=== PATIENT | female | born 1980 | race Caucasian/White ===

== ENCOUNTER 2022-05-23 20:39 | Emergency (ER) | payer OTHER ==
--- OUTSIDE RECORDS SUMMARY | 2022-05-23 20:42 | XMS REPORT | Continuity of Care Document ---
:1980 Author Organization [facility] t Address [address] [place] [address] Care Team Providers Name Role Phone JOSE GARCIA Primary Care Physician Unavailable KENNY PITTMAN Attending Clinician Unavailable Kenny Pittman MD Attending Clinician [phone] Jose Garcia Attending Clinician Unavailable Cassie Delacruz Attending Clinician Unavailable Deven Haddad Attending Clinician Unavailable Elle Pineda Attending Clinician Unavailable Cynthia Pedroza Attending Clinician Unavailable Grisel Candelario Admitting Clinician Unavailable Jose Garcia Admitting Clinician Unavailable Cassie Delacruz Admitting Clinician Unavailable KNOW, DOES_NOT Admitting Clinician Unavailable Payers Payer Name Policy Type Policy Number Effective Date Expiration Date Javan gamez [facility] POS [id number] 2021 00:00:00 SELECT CHOICE Problems This patient has no known problems. Allergies, Adverse Reactions, Alerts Allergy Allergy Status Severity Reaction(s) Onset Inactive Treating Comm ents Source Name Type Date Date Clinician No Known DA [facility] U 2019[facility] No Known DA Active U 2019-05 [facility] No Known DA Active U [facility] No Known DA Active U [facility] 02-19 [facility] s 00:00: d 00 [facility] NO KNOWN Allergy Active [facility] Social History Social Habit Start Date Stop Date Quantity Comments Source Exposure to 2021-12-31 2022-01-[address] [facility] SARS-CoV-2 (event) 00:00:00 14:55:00 [facility] Cigarette 2022-01-10 2022-01-[address] [facility] pack-years 00:00:00 00:00:00 [facility] Tobacco use and 2022-01-10 2022-01-[address] [facility] exposure 00:00:00 00:00:00 [facility] Alcohol intake 2022-01-10 2022-01-10 Ex-drinker [facility] 00:00:00 00:00:00 (finding) [facility] Cigarettes smoked 2022-01-10 2022-01-[address] [facility] current (pack per 00:00:00 00:00:00 [facility] Center day) - Reported Sex Assigned At [address] [facility] 00:00:00 00:00:00 [facility] Smoking Status Start Date Stop Date Source Current every day smoker 2022-01-10 00:00:00 [facility] Medications Ordered Filled Start Stop Current Ordering Indication Dosage Frequency Signature Comments Components Source Medication Medication Date Date Medication? Clinician (SIG) Name Name acetaminoph Yes Take by [facility] 01-[facility] (TYLENOL 00:00: Medical #3) 300-30 00 Center mg per tablet naproxen 2021-0 Yes 500mg Q.5D Take [address] (NAPROSYN) 8-18 mg by [facility] 500 MG 00:00: mouth 2 Medical tablet 00 (two) Center times daily. acetaminoph 2021-0 Yes Take by [facility] en-codeine 8-18 [facility] (TYLENOL 00:00: Medical #3) 300-30 00 Center mg per tablet naproxen 2021-0 Yes 500mg Q.5D Take [address] (NAPROSYN) 8-18 mg by [facility] 500 MG 00:00: mouth 2 Medical tablet 00 (two) Center times daily. acyclovir 0 Yes 400mg QD Take [address] (ZOVIRAX) 8-17 mg by [facility] 400 MG 00:00: mouth Medical tablet 00 daily. [place] estradioL Yes Place [facility] (ESTRACE) 8-17 vaginally. Luke [facility] 0.01 % (0.1 00:00: Medica l mg/gram) 00 [place] vaginal cream acyclovir 0 Yes 400mg QD Take [address] (ZOVIRAX) 8-17 mg by [facility] 400 MG 00:00: mouth Medical tablet 00 daily. [place] estradioL [address] [facility] (ESTRACE) 8-17 vaginally. Luke [facility] 0.01 % (0.1 00:00: Medica l mg/gram) 00 [place] vaginal cream propranoloL 2021-0 Yes 20mg QD Take [address] (INDERAL) 8-17 by mouth [facility] 20 MG 00:00: daily. Medical tablet 00 Center propranoloL 0 Yes 20mg QD Take [address] (INDERAL) 8-17 by mouth [facility] 20 MG 00:00: daily. Medical tablet 00 Center simvastatin Yes SMARTSI [facility] (ZOCOR) 10 7-31 Tablet(s) Luke s MG tablet 00:00: By Mouth Medi roberto 00 Every Center Evening simvastatin 2021-[address] [facility] (ZOCOR) 10 7-31 Tablet(s) [facility] MG tablet 00:00: By Mouth Medi roberto 00 Every Center Evening Vital Signs Vital Name Observation Time Observation Value Comments Source HEIGHT 2022-02-04 10:02:00 152.4 cm WEIGHT 2022-02-04 10:02:00 65.772 kg HEIGHT 2022-02-04 10:02:00 152.4 cm WEIGHT 2022-02-04 10:02:00 65.772 kg HEIGHT 2022-01-10 15:00:00 152.4 cm WEIGHT 2022-01-10 15:00:00 65.772 kg HEIGHT 2022-01-10 15:00:00 152.4 cm WEIGHT 2022-01-10 15:00:00 65.772 kg Systolic blood 2022-03-04 14:05:00 125 mm[Hg] [facility] Diastolic blood 2022-03-04 14:05:00 85 mm[Hg] [facility] Body temperature 2022-03-04 14:05:00 36.67 Delphine [facility] Body height 2022-03-04 14:05:00 152.4 cm [facility] Body weight 2022-03-04 14:05:00 65.772 kg [facility] BMI 2022-03-04 14:05:00 28.32 kg/m2 [facility] Heart rate 2022-02-04 10:02:00 76 /min [facility] Systolic blood 2022-01-10 15:00:00 135 mm[Hg] [facility] Diastolic blood 2022-01-10 15:00:00 85 mm[Hg] [facility] Body temperature 2022-01-10 15:00:00 36.67 Delphine [facility] Body height 2022-01-10 15:00:00 152.4 cm [facility] Body weight 2022-01-10 15:00:00 65.772 kg [facility] BMI 2022-01-10 15:00:00 28.32 kg/m2 [facility] Procedures Procedure Date / Time Performed Performing Clinician [facility] e XR FOOT 3 VIEWS LEFT 2022-03-30 11:36:00 Kenny Pittman [facility] XR ANKLE 3 VIEWS LEFT 2022-03-30 11:36:00 Pittman, [facility] XR FOOT 3 VIEWS LEFT 2022-02-04 18:33:00 Kenny Pittman [facility] Plan of Care Planned Activity Planned Date Details Comments Source Future Scheduled 2022-01-24 INFLUENZA VACCINE (#1) [facility]:00[facility]00 [code = INFLUENZA Medical Ce nter VACCINE (#1)] Future Scheduled 2022-01-24 INFLUENZA VACCINE (#1) [facility] 00:00:00 [code = INFLUENZA Medical Ce nter VACCINE (#1)] Future Scheduled 2021-05-[address] [facility] Test 00:00:00 (12+) [code = [facility] Center DEPRESSION SCREENING (12+)] Future Scheduled 2021-05-[address] [facility] Test 00:00:00 (12+) [code = [facility] Center DEPRESSION SCREENING (12+)] Future Scheduled 2021-01-21 COVID-19 VACCINE (2 - [facility] Test 00:00:00 Pfizer series) [code = [facility] Center COVID-19 VACCINE (2 - Pfizer series)] Future Scheduled 1999-09-[address] [facility] Test 00:00:00 malignant [facility] cervix (procedure) [code = 885630578] Future Scheduled 1999-09-[address] [facility] Test 00:00:00 malignant neoplasm of [facility] cervix (procedure) [code = 423375154] Future Scheduled [address] [facility] Test 00:00:00 (procedure) [code = [facility] [id number]] Future Scheduled [address] [facility] Test 00:00:00 (procedure) [code = [facility] [id number]] Future Scheduled 1997 DTAP/TDAP/TD VACCINES [facility] Test 00:00:00 (1 - Tdap) [code = Medical C enter DTAP/TDAP/TD VACCINES (1 - Tdap)] Future Scheduled 1997 DTAP/TDAP/TD VACCINES [facility] Test 00:00:00 (1 - Tdap) [code = Medical C enter DTAP/TDAP/TD VACCINES (1 - Tdap)] Future Scheduled 1996 HEPATITIS C [facility]CRE[facility]ING [facility] Test 00:00:00 [code = HEPATITIS C Medical Center SCREENING] Future Scheduled 1996 HEPATITIS C [facility]CRE[facility]ING [facility] Test 00:00:00 [code = HEPATITIS C Medical Center SCREENING] Future Scheduled [address] [facility] Test 00:00:00 [facility] Cent[facility] r Screening (12+) [code = Tobacco Cessation Counseling and Screening (12+)] Future Scheduled [address] [facility] Test 00:00:00 0-64 YRS (1 - PCV) Medical C enter [code = PNEUMOCOCCAL VACCINE 0-64 YRS (1 - PCV)] Future Scheduled [address] [facility] Test 00:00:00 0-64 YRS (1 - PCV) Medical C enter [code = PNEUMOCOCCAL VACCINE 0-64 YRS (1 - PCV)] Future Scheduled 1979-03-16 COVID-19 VACCINE (#1) [facility] 00:00:00 [code = COVID-[address] VACCINE (#1)] Encounters Start End Encounter Admission Attending Care Care Encounter Source Date/Time Date/Time Type Type Clinicians Facility Department ID 2020-04-02 Inpatient [facility]CAK[facility] CERS [id number] [facility] 20:02:00 [id number] [facility] 2022-03-15 2022-03-15 Outpatient AYLIN PITTMAN [facility] [id number] 14:55:04 14:55:23 [facility] 2022-03-04 2022-03-[address] [facility] [id number] 11:00:00 14:55:[address] 2022-02-04 2022-02-[address] [facility] [id number] 10:00:00 10:47:43 Visit [facility] 2022-02-04 2022-02-04 Outpatient AYLIN PITTMAN [facility] [id number] 09:55:24 10:47:43 [facility] 2022-02-04 2022-02-04 Travel [facility] [id number] [facility] 00:[facility]00 00:00:00 [facility] 2022-01-30 2022-01-30 Outpatient LISA Wyatt RADI [id number] [facility] 13:33:00 13:33:00 Jose Emely [facility] 2022-01-22 2022-01-[address] [facility] [id number] 00:00:00 00:00:00 [facility] 2022-01-22 2022-01-[address] [facility] [id number] 00:00:00 00:00:00 [facility] 2022-01-10 2022-01-[address] [facility] [id number] 14:45:00 16:15:20 Visit [facility] 2022-01-10 2022-01-[address] [facility] [id number] 14:45:00 16:15:20 Visit [facility] 2022-01-10 2022-01-10 Travel [facility] [id number] [facility] 00:00:00 00:00:00 [facility] 2022-01-10 2022-01-10 Travel [facility] [id number] [facility] 00:[facility]:00 00:00:00 [facility] 2021-12-19 2021-12-19 Outpatient WOODY SantiagoYOVANNY MUÑOZ [id number] [facility] 12:00:00 12:00:00 Cassie Schreiber [facility] 2021-09-06 2021-09-06 Outpatient De Paula MIRZAW HERMESW [id number] [facility] 14:04:00 14:04:00 Dilma [id number] Bishnu [facility] 2020-12-13 2020-12-13 Outpatient WOODY SantiagoKrystaW TONI [id number] [facility] 12:00:00 12:00:00 Cassie [id number] [facility] 2020-11-20 2020-11-20 Emergency EM MONA Pineda CERS [id number] [facility] 11:30:00 13:06:00 Naim [id number] [facility] 2020-08-08 2020-08-08 Outpatient MONA Pedroza THANH [id number] [facility] 13:00:00 13:00:00 Tantasha [id number] [facility] 2020-08-08 2020-08-08 Outpatient LISA Gottlieb [facility] [id number] [facility] 12:30:00 12:30:00 Tantasha 86 [facility] 2020-01-04 2020-01-04 Outpatient MONA Sanchez [id number] [facility] 12:00:00 12:00:00 Cassie [id number] [facility] 2019-12-01 2019-12-01 Outpatient MONA Sanchez [id number] [facility] 12:00:00 12:00:00 Cassie [id number] [facility] Results Test Description Test Time Test Comments Results Result [facility] e Comments - CT ABDOMEN W WO CONT 7 15:02:00 [facility]Name: JOSH WALTERS : 1980 Sex: F Name: JOSH WALTERS [facility] : 1980 Age/S: 41 / F [address] [facility] Unit #: [id number] Loc: [place] Pedra[place] [address] Phys: Jose Garcia MD Acct: [id number] Dis Date: Status: REG CLI PHONE #: [phone] Exam Date: 01/30/20221432 FAX #: [phone] Reason: CONSTIPATION EXAMS: CPT CODE: [id number] CT ABDOMEN W WO CONT 70791 HISTORY: Constipation. COMPARISON: None available. Location: [facility]. CT abdomen with and without contrast: 100 mL of Isovue-370. CT dose reduction protocol: Automated exposure control adjustment of mA and/or kV according to patient size or iterative reconstruction dose optimization techniques were used. Lung bases are clear. 6 mm noncalcified nodule in the subpleural left base. Follow-up with nonemergent CT chest for further characterization and evaluation of the rest of the lung. The liver enhances homogeneously. No mass or architectural distortion. Gallbladder is without radiopaque stones. Simple cyst in the segment 5 of the right lobe the liver measuring 1 cm with average Hounsfield unit measurement of 13. The liver measured 14.5 cm in length. Main portal vein and hepatic artery are patent. The spleen is not enlarged. Homogeneous enhancement. The stomach distended incompletely however it is normal in appearance. Pancreas enhances homogeneously. Possible duodenal diverticulum abuts the pancreatic head on the right side measuring 1.8 cm. Possible air noted within it however is difficult to separate this from pancreatic head mass. Average Hounsfield unit measurement of 29. Correlate with MRI scan. Kidneys are free from hydroureteronephrosis. Homogeneous enhancement. Bilateral excretion is noted. No calyceal stones noted on the precontrast sequence. Subcentimeter hypodense lesion in the anterior interpolar region likely hemorrhagic or proteinaceous cyst. No follow-up is required. No pathologic adenopathy. Well-opacified abdominal vasculature with mild atherosclerotic change. No bowel obstruction or colitis or diverticulitis or enteritis. Constipation. Patient is post appendectomy. Correlate with surgical history. No free fluid or free air or abscess. PAGE 1 Signed Report (CONTINUED) Name: JOSH WALTERS [facility] : 1980 Age/S: 41 / F [address] [facility] Unit #: [id number] Loc: [place] [address] Phys: Jose Garcia MD Acct: [id number] Dis Date: Status: REG CLI PHONE #: [phone] Exam Date: 01/30/20221432 FAX #: [phone] Reason: CONSTIPATION EXAMS: CPT CODE: [id number] CT ABDOMEN W WO CONT 25866 (Continued) Subcutaneous tissues and the musculature are normal in appearance. No lytic or blastic lesions are noted within the bony skeleton. IMPRESSION: Debris filled 1.8 cm lesion abutting the right side of the head of pancreas. It is difficult to differentiate from duodenal diverticulum from a pancreatic head mass. Correlate with MRI scan for further evaluation. Rest of the pancreas enhances homogeneously without ductal dilatation. No pathologic adenopathy. No bowel obstruction or colitis or diverticulitis or enteritis. Scattered fecal material. Patient appears to be post operative appendectomy. Correlate with surgical history. No hydroureteronephrosis or calyceal stones. 6 cm subpleural left basal noncalcified lung nodule. Follow-up with CT chest. at 1502 Reported and signed by: Marbin Pisano M.D. CC: Jose Garcia MD Technologist:Konstantin Nieves RT(R),(MR),(CT) CTDI: DLP: Trnscb Date/Time: 01/30/2022 (1502) t.SDR.TH4 Orig Print D/T: S: 01/30/2022 (0273) PAGE 2 Signed Report - US HEAD AND 2020-07-24 NECK 6 13:40:00 [facility] [place] : 1980 Sex: F FAX: Cynthia Mckee NP [phone] [place]: [facility] St: PRE FAX: Grisel Frey [phone] - Name: JOSH WALTERS FSED : 1980 Age/S: 39/F [address] [facility] Unit #: [id number] Loc: [place] [address] Phys: Cynthia Pedroza NP Acct: [id number] Dis Date: Status: PRE CLI PHONE #: Exam Date: 08/08/2020 0250 FAX #: Reason: THYROID NODULE EXAMS: CPT CODE: [id number] US HEAD AND NECK 21446 EXAM: - US HEAD AND NECK HISTORY: THYROID NODULE Location code:C3 COMPARISON: 02/28/2017 TECHNIQUE: Real time sonography was done with the variable megahertz high frequency linear transducer. FINDINGS: The right lobe measures 5.0 x 1.6 x 2.5cm. The left lobe measures 4.3 x 1.8 x 1.6cm. The isthmus measure 0.3cm AP dimension. There is a 3 x 3 x 4 mm cyst in the left thyroid lobe. Anechoic nonvascular 11 x 7 x 11 mm cyst in the right thyroid lobe is seen. Adjacent to this cyst in the right thyroid lobe, there is an additional mixed cystic and solid well-circumscribed wider than tall anechoic 7 x 8 x 5 mm cystic structure with internal echogenic 2 x 2 x 2 mm mural nodule not significantly changed since prior exam. No internal calcified within this lesion is seen. IMPRESSION: There are 2 benign cysts present with one single mixed solid and cystic 8 mm lesion in the mid right thyroid lobe which is not changed since prior exam. Consider 2 year follow-up ultrasound. at 1340 Reported and signed by: Sami Stover MD CC: Cynthia Pedroza CULINARY ARTIST; Grisel JEFF Technologist: Samina Fallon [facility] Date/Time/By: 08/08/2020 (1340) : By: [email or web address] PAGE 1 Signed Report FAX: Cynthia Mckee NP [phone] [place]: [facility] St: PRE FAX: Grisel Frey [phone] - Name: JOSH WALTERS [place] [facility] : 1980 Age/S: 39/F [address] [facility] Unit #: [id number] Loc: [place] [address] Phys: Cynthia Pedroza NP Acct: [id number] Dis Date: Status: PRE CLI PHONE #: Exam Date: 08/08/2020 3628 FAX #: Reason: THYROID NODULE EXAMS: CPT CODE: [id number] HEAD AND NECK 07025 (Continued) Orig Print D/T: S: 08/08/2020 (1620) PAGE 2 Signed Report GASTRIC,BIOPSY 3 14:52:00 RUN DATE: 01/26/19 [facility] PAGE 1 RUN TIME: 1451 Specimen Inquiry RUN USER: INTERFACE PATIENT: JOSH WALTERS LOC: BOB U #: [id number] AGE/SX: 38/F ROOM: RE01/22/[facility]: Shayna Forrester : [birth year] BED: DIS: STATUS: [facility] TLOC: SPEC #: [id number] RECD: 01/22/19 STATUS: DYAN CEDEÑO #: [id number] FLORENCIA: 01/22/[address] [facility] [address]: Shayna Forrester MD ENTERED: 01/22/19 SP TYPE: BX GASTRIC OTHR DR: Grisel Candelario PA ORDERED: PATHGM4/2, SPEC STAIN I, # OF BLOCKS/2, # OF SLIDES/5 TISSUES: A. GASTRIC BIOPSY B. GASTRO-ESOPHAGEAL JUNCTION BIOPSY CLINICAL HISTORY GASTRITIS, IRREGULAR Z-LINE FINAL MICROSCOPIC DIAGNOSIS A. STOMACH, BIOPSY: - FRAGMENTS OF BENIGN GASTRIC ANTRAL AND OXYNTIC MUCOSA WITHOUT SIGNIFICANT HISTOPATHOLOGIC ALTERATION - SPECIAL STAIN (WARTHIN-STARRY) NEGATIVE FOR HELICOBACTER ORGANISMS B. GASTROESOPHAGEAL JUNCTION, BIOPSY: - FRAGMENTS OF BENIGN SQUAMOCOLUMNAR CARDIOESOPHAGEAL JUNCTION-TYPE MUCOSA EXHIBITING REFLUX ESOPHAGITIS AND MILD, INACTIVE CHRONIC CARDITIS WITH REACTIVE CELLULAR CHANGES - NO SPECIALIZED (CHERY'S TYPE) INTESTINAL METAPLASIA, DYSPLASIA, OR MALIGNANCY SEEN CPT 44784 X 2, 29181 GROSS DESCRIPTION Specimen A: In formalin labeled with the patient's name, medical record number and "gastric biopsy" are two pink-leon fragments of soft tissue measuring 0.2 cm and 0.5 cm in greatest dimension. The specimen is entirely submitted in cassette A1. Specimen B: In formalin labeled with the patient's name, medical record number and "GE junction biopsy" is a 0.5 cm in greatest dimension baker-white fragment of soft tissue. The specimen is entirely submitted in cassette B1. OK/DB/tb CONTINUED ON NEXT PAGE RUN DATE: 01/26/19 [place] [facility] PAGE 2 RUN TIME: 1451 Specimen Inquiry RUN USER: INTERFACE SPEC #: [id number] PATIENT: JOSH WALTERS #[id number] (Continued) Signed SIGNATURE ON Ami Givens MD 01/26/19 1452 END OF REPORT COLON,BIOPSY 2018-11-24 9 10:31:00 [facility]: [facility] TIME: 1031 Specimen Inquiry RUN USER: INTERFACE PATIENT: CIERAJOSH BERNARD LOC: BOB U #: [id number] AGE/SX: 38/F ROOM: RE12/18/[facility] DR: Shayna Forrester : [birth year] BED: DIS: STATUS: ISIDRO PATEL TLOC: SPEC #: [id number] RECD: 12/18/182149 STATUS: DYAN CEDEÑO #: [id number] [place]: 12/18/[address] [facility] [address]: Shayna Forrester MD ENTERED: 12/18/18-1443 SP TYPE: BX COLON OTHR DR: Grisel Candelario ORDERED: PATHGM4, # OF BLOCKS, # OF SLIDES/2 TISSUES: A. COLON, NOS - HEPATIC FLEXURE POLYP CLINICAL HISTORY COLON POLYP FINAL MICROSCOPIC DIAGNOSIS COLON, HEPATIC FLEXURE POLYP, BIOPSY: TUBULAR ADENOMA CPT 07931 GROSS DESCRIPTION The specimen is designated with the patient's name, demographics and "hepatic flexure polyp." It consists of two leon soft tissue fragments, 0.3 and 0.4 cm in greatest dimension, entirely submitted in A1. SSA/jv Signed SIGNATURE ON FILE Zena Perez MD 12/21/18 1031 END OF REPORT
[2022-05-23] MEDS ORDERED: MORPHINE 4 MG/ML SYR ONE (21:15)
[2022-05-23] MEDS ORDERED: ONDANSETRON 4 MG/2 ML VIAL ONE (21:16)
[2022-05-23] MEDS ORDERED: HYDROCODONE/APAP 10/325 TAB ONE (21:16)
--- NOTE | 2022-05-23 22:01 | RAD REPORT ---
EXAM DESCRIPTION: RAD - Wrist Left 3 View - 05/23/2022 9:20 pm CLINICAL HISTORY: Left wrist pain status post injury FINDINGS: Comminuted impacted moderately displaced fracture distal radius. Angulation present at the fracture site No dislocation seen.
[2022-05-23] MEDS ORDERED: ETOMIDATE 20 MG/10 ML VIAL IV ONE (22:46)
[2022-05-23] MEDS ORDERED: FENTANYL CITR 100 MCG/2 ML ONE (23:18)
--- NOTE | 2022-05-24 00:09 | EDPHYS ---
Physician Documentation [facility] Name: Perla Walters Age: 41 yrs Sex: Female : 1980 Arrival Date: 05/23/2022 Time: 20:44 Bed 5 Private MD: ED Physician Mandie Lizarraga HPI: 05/23 21:00 This 41 yrs old Female presents to ER via Ambulatory with complaints of Arm Injury, jmm Possible broken. 21:00 The patient or guardian complains of injury, pain. Onset: The symptoms/episode jmm began/occurred acutely, just prior to arrival. Is a 41-year-old female with history of hypertension, hyperlipidemia, hypothyroidism the presents emerged part with complaints of left wrist pain following a fall which occurred just prior to arrival. Patient states she fell down her RV. Denies hitting her head. Denies chest pain, abdominal pain, back pain.. 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 N/A - Hysterectomy ld1 Historical: - Allergies: 21:17 Wasps; ld1 21:17 Bees; ld1 - Home Meds: 21:17 propranolol 20 mg Oral tab 1 tab daily [Active]; acyclovir 400 mg Oral tab 1 tab daily ld1 [Active]; simvastatin 10 mg Oral tab 1 tab once daily [Active]; bupropion HCl 150 mg Oral Tb24 1 tab once daily [Active]; omeprazole 40 mg Oral cpDR 1 cap once daily [Active]; - PMHx: 21:17 Hypertensive disorder; Hypercholesterolemia; Hyperthyroidism; Anxiety; Herpes simplex; ld1 - PSHx: 21:17 Appendectomy; Total abdominal hysterectomy; Tonsillectomy; Adenoid excision; ld1 - Immunization history:: Client reports receiving the 2nd dose of the Covid vaccine. - Social history:: Smoking status: Patient reports the use of cigarette tobacco products, smokes one pack cigarettes per day. ROS: 21:00 Constitutional: Negative for fever, chills, and weight loss, Cardiovascular: Negative jmm for chest pain, palpitations, and edema, Respiratory: Negative for shortness of breath, cough, wheezing, and pleuritic chest pain. 21:00 MS/extremity: Positive for injury or acute deformity, pain. 21:00 All other systems are negative. Exam: 21:00 Constitutional: This is a well developed, well nourished patient who is awake, alert, jmm and in no acute distress. Head/Face: atraumatic. Eyes: EOMI, no conjunctival erythema appreciated ENT: Moist Mucus Membranes Neck: Trachea midline, Supple Chest/axilla: Normal chest wall appearance and motion. Cardiovascular: Regular rate and rhythm. No edema appreciated Respiratory: Normal respirations, no respiratory distress appreciated Abdomen/GI: Non distended Back: Normal ROM Skin: General appearance color normal 21:00 Neuro: Awake and alert Psych: Behavior is normal, Mood is normal, Patient is cooperative and pleasant 21:00 Musculoskeletal/extremity: Deformity noted to the left wrist, full radial pulse, sensation intact, less than 2-second distal cap refill, neurovascular intact. Vital Signs: 21:14 BP 126 / 95; Pulse 98; Resp 17; Temp 98.5(O); Pulse Ox 98% on R/A; Weight 65.77 kg (R); ld1 Height 5 ft. 1 in. (154.94 cm) (R); Pain 10/10; 23:08 BP 151 / 103; Pulse 109; Resp 23 S; Pulse Ox 97% on R/A; ha1 23:13 BP 152 / 107; Pulse 108; Resp 23 S; Pulse Ox 97% on R/A; ha1 23:17 BP 148 / 97; Pulse 103; Resp 22 S; Pulse Ox 98% on R/A; ha1 23:22 BP 133 / 64; Pulse 95; Resp 20 S; Pulse Ox 98% on R/A; ha1 05/24 00:15 BP 128 / 76; Pulse 82; Resp 16 S; Pulse Ox 100% on R/A; ha1 00:45 BP 124 / 75; Pulse 70; Resp 14 S; Pulse Ox 100% on R/A; Pain 3/10; ha1 05/23 21:14 Body Mass Index 27.40 (65.77 kg, 154.94 cm) ld1 Procedures: 00:07 Reduction: of the left wrist, using traction, manipulation, Immobilized with Sugar-tong [facility] Ortho-Glass. MDM: 05/23 21:[address] [facility] 05/24 00:07 Data reviewed: vital signs, nurses notes. Counseling: I had a detailed discussion with [facility] the patient and/or guardian regarding: the historical points, exam findings, and any diagnostic results supporting the discharge/admit diagnosis, radiology results, the need for outpatient follow up, to return to the emergency department if symptoms worsen or persist or if there are any questions or concerns that arise at home. 05/23 21:04 Order name: Wrist Left (3 View) XRAY; Complete Time: 22:02 [facility] 05/23 23:20 Order name: Forearm Left XRAY sb4 05/23 21:08 Order name: Saline Lock; Complete Time: 21:23 [facility] 05/23 21:18 Order name: Misc. Order: fingertraps, weight, iv pole; Complete Time: 21:28 [facility] 05/23 21:55 Order name: Conscious Sedation; Complete Time: 00:15 [facility] 05/23 21:57 Order name: Sugar Tong Forearm Splint; Complete Time: 00:15 [facility] Administered Medications: 05/23 21:17 Drug: [place] (HYDROcodone-acetaminophen) 10 mg-325 mg 1 tabs Route: PO; as6 21:50 Follow up: Response: No adverse reaction; RASS: Alert and Calm (0) ha1 21:24 Drug: morphine 4 mg Route: IVP; Infused Over: 4 mins; Site: right antecubital; as6 21:55 Follow up: Response: No adverse reaction; Pain is decreased; RASS: Alert and Calm (0) ha1 21:24 Drug: Zofran (Ondansetron) 4 mg Route: IVP; Site: right antecubital; as6 23:08 Drug: Etomidate 10 mg Route: IVP; Site: right antecubital; ha1 23:40 Follow up: Response: No adverse reaction ha1 23:16 Drug: fentaNYL (PF) 50 mcg Route: IVP; Site: right antecubital; ha1 23:45 Follow up: Response: No adverse reaction; Pain is decreased; RASS: Alert and Calm (0) ha1 05/24 00:15 Drug: fentaNYL (PF) 25 mcg Route: IVP; Site: right antecubital; ha1 00:35 Follow up: Response: No adverse reaction; Pain is decreased; RASS: Alert and Calm (0) ha1 Disposition Summary: 05/24/22 00:08 Discharge Ordered Location: Home [facility] Condition: Stable [facility] Diagnosis - Distal Radial Fracture, initial visit, closed, left, unspecified [facility] Followup: jmm - With: Simeon Austin MD - When: 2 - 3 days - Reason: Recheck today's complaints, Continuance of care, Re-evaluation by your physician Discharge Instructions: - Discharge Summary Sheet jmm - Radial Fracture jm Forms: - Medication Reconciliation Form [facility] - Thank You Letter jmm - Antibiotic Education jmm - Prescription Opioid Use [facility] Prescriptions: - Tylenol-Codeine #3 300 mg-30 mg Oral - take 1 tablet by ORAL route every 4-6 hours As needed; 20 tablet; Refills: 0, jm Product Selection Permitted Signatures: Dispatcher [employer] EDMS Marvin Jason PA PA jmm Dibbern, Lauren, RN RN ld1 Mandie Lizarraga MD MD sp3 Saul Coyle RN RN as6 Guerita Mcgee RN RN ha1 Corrections: (The following items were deleted from the chart) 05/23 21:21 21:17 PSHx: Bladder suspension; ld1 ld1 23:36 23:20 Wrist Left 3 View+RAD.RAD.BRZ ordered. EDMS EDMS
--- NOTE | 2022-05-24 00:09 | ER ---
Nurse's Notes [facility] Name: Perla Walters Age: 41 yrs Sex: Female : 1980 Arrival Date: 05/23/2022 Time: 20:44 Bed 5 Private MD: Diagnosis: Distal Radial Fracture, initial visit, closed, left, unspecified Presentation: 05/23 21:14 Chief complaint: Patient states: States "I was going up stairs in my RV and I missed a ld1 step", c/o left wrist pain 03/04. Coronavirus screen: Vaccine status: Patient reports receiving the 2nd dose of the covid vaccine. At this time, the client does not indicate any symptoms associated with coronavirus-19. Ebola Screen: No symptoms or risks identified at this time. Initial Sepsis Screen: Does the patient meet any 2 criteria? No. Patient's initial sepsis screen is negative. Does the patient have a suspected source of infection? No. Patient's initial sepsis screen is negative. Risk Assessment: Do you want to hurt yourself or someone else? Patient reports no desire to harm self or others. Onset of symptoms was May 23, 2022 at 20:45. 21:14 Method Of Arrival: Ambulatory ld1 21:14 Acuity: MAIN 2 ld1 Triage Assessment: 21:25 Injury Description: Deformity sustained to palmar aspect of left forearm and dorsal as6 aspect of left forearm. 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 ld1 Historical: - Allergies: 21:17 Wasps; ld1 21:17 Bees; ld1 - Home Meds: 21:17 propranolol 20 mg Oral tab 1 tab daily [Active]; acyclovir 400 mg Oral tab 1 tab daily ld1 [Active]; simvastatin 10 mg Oral tab 1 tab once daily [Active]; bupropion HCl 150 mg Oral Tb24 1 tab once daily [Active]; omeprazole 40 mg Oral cpDR 1 cap once daily [Active]; - PMHx: 21:17 Hypertensive disorder; Hypercholesterolemia; Hyperthyroidism; Anxiety; Herpes simplex; ld1 - PSHx: 21:17 Appendectomy; Total abdominal hysterectomy; Tonsillectomy; Adenoid excision; ld1 - Immunization history:: Client reports receiving the 2nd dose of the Covid vaccine. - Social history:: Smoking status: Patient reports the use of cigarette tobacco products, smokes one pack cigarettes per day. Screenin:24 [facility] ED Fall Risk Assessment (Adult) History of falling in the last 3 months, as6 including since admission Yes- single mechanical fall (1 pt) Score/Fall Risk Level 0 - 2 = Low Risk. Abuse screen: Denies threats or abuse. Denies injuries from another. Nutritional screening: No deficits noted. Tuberculosis screening: No symptoms or risk factors identified. Assessment: 21:24 General: Appears uncomfortable, Behavior is cooperative, crying. Pain: Complains of as6 pain in dorsal aspect of left forearm and palmar aspect of left forearm. Neuro: Level of Consciousness is awake, alert, obeys commands, Oriented to person, place, time, situation. Cardiovascular: Capillary refill < 3 seconds Patient's skin is warm and dry. Respiratory: Respiratory effort is even, unlabored. Musculoskeletal: Bony deformity noted of dorsal aspect of left forearm and palmar aspect of left forearm. 22:20 Reassessment: Patient and/or family updated on plan of care and expected duration. Pain ha1 level reassessed. 23:08 Reassessment: Patient and/or family updated on plan of care and expected duration. Pain ha1 level reassessed. see flow sheet for vital signs. 05/24 00:15 Reassessment: Patient and/or family updated on plan of care and expected duration. Pain ha1 level reassessed. Patient is alert, oriented x 3, equal unlabored respirations, skin warm/dry/pink. pain 8/10. Vital Signs: 05/23 21:14 BP 126 / 95; Pulse 98; Resp 17; Temp 98.5(O); Pulse Ox 98% on R/A; Weight 65.77 kg (R); ld1 Height 5 ft. 1 in. (154.94 cm) (R); Pain 10/10; 23:08 BP 151 / 103; Pulse 109; Resp 23 S; Pulse Ox 97% on R/A; ha1 23:13 BP 152 / 107; Pulse 108; Resp 23 S; Pulse Ox 97% on R/A; ha1 23:17 BP 148 / 97; Pulse 103; Resp 22 S; Pulse Ox 98% on R/A; ha1 23:22 BP 133 / 64; Pulse 95; Resp 20 S; Pulse Ox 98% on R/A; ha1 05/24 00:15 BP 128 / 76; Pulse 82; Resp 16 S; Pulse Ox 100% on R/A; ha1 00:45 BP 124 / 75; Pulse 70; Resp 14 S; Pulse Ox 100% on R/A; Pain 3/10; ha1 05/23 21:14 Body Mass Index 27.40 (65.77 kg, 154.94 cm) ld1 ED Course: 05/23 20:44 Patient arrived in ED. es 20:59 Saul Coyle, RN is Primary Nurse. as6 21:00 Marvin Jason PA is PHCP. jmm 21:00 Mandie Lizarraga MD is Attending Physician. jmm 21:15 Inserted saline lock: 20 gauge in right antecubital area, using aseptic technique. as6 21:17 Triage completed. ld1 21:17 Arm band placed on Patient placed in an exam room, on a stretcher, on pulse oximetry. ld1 21:22 Wrist Left (3 View) XRAY In Process Unspecified. EDMS 21:24 Bed in low position. Call light in reach. Side rails up X2. as6 23:38 Forearm Left XRAY In Process Unspecified. EDMS 05/24 00:08 Simeon Austin MD is Referral Physician. [facility] 00:30 Orthoglass splint: Sugar tong splint applied on left arm. Sling applied to left arm. as6 00:54 Assist provider with fracture care of left wrist Fracture is closed. Obvious deformity ha1 is noted. Circulation, motor and sensation is intact. Set up for procedure. Performed by Marvin JEFF Reduced with physical manipulation. Immobilized with preformed splint, Post immobilization, circulation, motor and sensation remain intact. Patient tolerated well. IV discontinued, intact, bleeding controlled, No redness/swelling at site. Pressure dressing applied. Administered Medications: 05/23 21:17 Drug: [place] (HYDROcodone-acetaminophen) 10 mg-325 mg 1 tabs Route: PO; as6 21:50 Follow up: Response: No adverse reaction; RASS: Alert and Calm (0) ha1 21:24 Drug: morphine 4 mg Route: IVP; Infused Over: 4 mins; Site: right antecubital; as6 21:55 Follow up: Response: No adverse reaction; Pain is decreased; RASS: Alert and Calm (0) ha1 21:24 Drug: Zofran (Ondansetron) 4 mg Route: IVP; Site: right antecubital; as6 23:08 Drug: Etomidate 10 mg Route: IVP; Site: right antecubital; ha1 23:40 Follow up: Response: No adverse reaction ha1 23:16 Drug: fentaNYL (PF) 50 mcg Route: IVP; Site: right antecubital; ha1 23:45 Follow up: Response: No adverse reaction; Pain is decreased; RASS: Alert and Calm (0) ha1 05/24 00:15 Drug: fentaNYL (PF) 25 mcg Route: IVP; Site: right antecubital; ha1 00:35 Follow up: Response: No adverse reaction; Pain is decreased; RASS: Alert and Calm (0) ha1 Medication: 05/23 21:24 VIS not applicable for this client. as6 Outcome: 05/24 00:08 Discharge ordered by . homero 00:57 Discharged to home via wheelchair, with family. ha1 00:57 Condition: stable 00:57 Discharge instructions given to patient, family, Instructed on discharge instructions, follow up and referral plans. medication usage, Demonstrated understanding of instructions, follow-up care, medications, Prescriptions given X 1. 00:58 Patient left the ED. ha1 Signatures: Dispatcher [employer] EDMarvin Cantu PA PA jmm Salyer, Edna es Dibbern, Lauren, RN RN ld1 Saul Coyle RN RN as6 Guerita Mcgee RN RN ha1 Corrections: (The following items were deleted from the chart) 05/23 21:21 21:17 PSHx: Bladder suspension; ld1 ld1 05/24 00:33 05/23 23:20 Reassessment: Patient and/or family updated on plan of care and expected ha1 duration. Pain level reassessed. ha1 05/24 00:52 00:32 Reassessment: ha1 ha1
[2022-05-24 01:25] VITALS: TEMP 98.5
[2022-05-24 01:27] VITALS: O2SAT 100
[2022-05-24 01:28] VITALS: BP 124/75
--- NOTE | 2022-05-24 15:30 | RAD REPORT ---
EXAM DESCRIPTION: RAD - Forearm Left - 05/23/2022 11:37 pm CLINICAL HISTORY: The patient is 41 years old and is Female; PAIN TECHNIQUE: Frontal and lateral views of the left forearm. COMPARISON: Radiograph performed the same day at 2114 hours FINDINGS: BONES/JOINTS: Interval reduction of the previously demonstrated dorsally angulated fract ure involving the distal radius. There has been improved alignment though mild angulation persists. R emaining bones are intact. SOFT TISSUES: Unremarkable. OTHER FINDINGS: Interval casting is noted which obscures fine detail. IMPRESSION: Slight interval improvement in the alignment of the distal radial fracture. 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 The interpreting radiologist is fully responsible for the content of the report.
== END 2022-05-24 00:58 | disposition home or self-care (01) ==
LOC: ER 20:39
DX: S52.502A Unspecified fracture of the lower end of left radius, initial encounter for closed fracture (principal); F17.210 Nicotine dependence, cigarettes, uncomplicated; I10 Essential (primary) hypertension; Z91.030 Bee allergy status; Z91.038 Other insect allergy status
CPT/HCPCS: 73090; 73110; 96375; 96374; 99284; 25605; J3010; J2405